=== PATIENT | female | born 1970 | race African-American/Black ===

== ENCOUNTER 2017-05-14 23:02 | Emergency (ER) | payer OTHER ==
[2017-05-15 02:32] LABS: A TYPE INFLUENZA AG NEGATIVE (NEGATIVE); B INFLUENZA AG NEGATIVE (NEGATIVE)
[2017-05-15] MEDS ORDERED: NORMAL SALINE 1000 ML 1,000 ML IV ONE (02:47)
--- NOTE | 2017-05-15 02:47 | ER Document Report ---
ED General - General Mode of Arrival: Ambulatory Information source: Patient TRAVEL OUTSIDE OF THE [place] IN LAST 30 DAYS: No - General Chief Complaint: Nausea/Vomiting Stated Complaint: NAUSEA VOMITING Time Seen by Provider: 05/15/17 02:23 Notes: Patient is a 46 year old female that presents to the emergency department today with vomiting and nasal congestion. Patient has recently been in contact with influenza. Patient has a history of paranoid schizophrenia. (FRANCESCA HADDAD) - Related Data Allergies/Adverse Reactions: grass pollen-orchard grass, standard [Grass Poll-Orchardgrass,Std] Allergy ( Unknown, Verified 05/15/17 00:07) No Known Drug Allergies Allergy (Unknown, Verified 05/15/17 00:07) Past Medical History - General Information source: Patient - Social History Smoking Status: Smoker,Current Status Unk Cigarette use (# per day): No Chew tobacco use (# tins/day): No Frequency of alcohol use: None Drug Abuse: None Lives with: Family Family History: Reviewed & Not Pertinent Patient has suicidal ideation: No Patient has homicidal ideation: No - Past Medical History Cardiac Medical History: Reports: Hx Hypercholesterolemia Endocrine Medical History: Reports: Hx Diabetes Mellitus Type 2 Psychiatric Medical History: Reports: Hx Schizophrenia Past Surgical History: Reports: Hx Section - x2 - Immunizations Immunizations up to date: Yes Hx Diphtheria, Pertussis, Tetanus Vaccination: Yes Review of Systems - Review of Systems Constitutional: denies: Fever EENT: See HPI, Nose congestion Cardiovascular: No symptoms reported Respiratory: No symptoms reported Gastrointestinal: See HPI, Vomiting. denies: Abdominal pain, Diarrhea Genitourinary: No symptoms reported Female Genitourinary: No symptoms reported Musculoskeletal: No symptoms reported Skin: No symptoms reported Hematologic/Lymphatic: No symptoms reported Neurological/Psychological: No symptoms reported -: Yes All other systems reviewed and negative Physical Exam - Vital signs Interpretation: Hypotensive - Vital signs Vitals: Temp Pulse Resp BP Pulse Ox 98.6 F 88 16 101/72 98 05/15/17 00:06 05/15/17 00:06 05/15/17 00:06 05/15/17 00:06 05/15/17 00:06 - Notes Notes: Physical Exam: General: Alert, appears well. HEENT: Normocephalic. Atraumatic. PERRL. Extraocular movements intact. Oropharynx clear. Nasal congestion. Dry mucous membranes. Neck: Supple. Non-tender. Respiratory: No respiratory distress. Clear and equal breath sounds bilaterally. Cardiovascular: Regular rate and rhythm. Abdominal: Normal Inspection. Non-tender. No distension. Normal Bowel Sounds. Back: Non-tender. No deformity or step off. Extremities: Moves all four extremities. Upper extremities: Normal inspection. Normal ROM. Lower extremities: Normal inspection. No edema. Normal ROM. Neurological: Normal cognition. AAOx4. Normal speech. Psychological: Normal affect. Normal Mood. Skin: Warm. Dry. Normal color. (FRANCESCA HADDAD) Course - Re-evaluation Re-evalutation: 05/15/17 Patient presents because she thought she might have the flu. Patient had nausea and vomiting last few days but none today and she is keeping p.o. without difficulty. Patient does have some nasal congestion. Flu swab is negative. Patient appears well. With a benign physical exam. ambulated without difficulty. Stable for discharge. Return if any worsening or concerning symptoms. (JAYME IYER) - Vital Signs Vital signs: Temp Pulse Resp BP Pulse Ox 98.6 F 88 16 101/72 98 05/15/17 00:06 05/15/17 00:06 05/15/17 00:06 05/15/17 00:06 05/15/17 00:06 - Laboratory Laboratory results interpreted by me: 05/15/17 00:05 POC Glucose 283 H Discharge - Discharge Clinical Impression: Vomiting Qualifiers: Vomiting type: unspecified Vomiting Intractability: non-intractable Nausea presence: with nausea Qualified Code(s): R11.2 - Nausea with vomiting, unspecified Upper respiratory infection Qualifiers: URI type: unspecified URI Qualified Code(s): J06.9 - Acute upper respiratory infection, unspecified Condition: Stable Disposition: HOME, SELF-CARE Instructions: Upper Respiratory Illness ([facility]), Vomiting ([facility]) Additional Instructions: Please follow-up with your doctor this week. Scribe Attestation: 05/15/17 05:37 I personally performed the services described in the documentation, reviewed and edited the documentation which was dictated to the scribe in my presence, and it accurately records my words and actions. (JAYME IYER) Scribe Documentation - Scribe Written by Scriblizzy:: Pedro Gordillo, 05/15/2017 0315 acting as scribe for :: Tal
[2017-05-15] MEDS ORDERED: ONDANSETRON ODT 4 MG TAB (6 TAB/ER DISP) PO PRN (03:43)
[2017-05-15 06:50] VITALS: BP 107/74
== END 2017-05-15 04:50 | disposition home or self-care (01) ==
LOC: ER 23:02
DX: J06.9 Acute upper respiratory infection, unspecified (principal); R11.2 Nausea with vomiting, unspecified; R09.81 Nasal congestion; F20.0 Paranoid schizophrenia; F17.200 Nicotine dependence, unspecified, uncomplicated
CPT/HCPCS: 99284; 96360; 82962; 87804; J7030